=== PATIENT | female | born 1930 | race Caucasian/White ===

== ENCOUNTER 2021-04-23 13:09 | Outpatient (CLI) | payer MEDICARE | END 2021-04-23 13:10 | disposition home or self-care (01) | LOC: BICRAD 13:09 | PROVIDERS: ATTEND Nurse Practitioner Family | DX: M47.812 Spondylosis without myelopathy or radiculopathy, cervical region (principal) | CPT/HCPCS: 72050 ==

== ENCOUNTER 2021-08-24 09:33 | Outpatient (CLI) | payer MEDICARE | END 2021-08-24 09:34 | disposition home or self-care (01) | LOC: RAD 09:33 | PROVIDERS: ATTEND Internal Medicine Critical Care Medicine | DX: R06.00 Dyspnea, unspecified (principal) | CPT/HCPCS: 71046 ==

== ENCOUNTER 2021-09-06 16:41 | Inpatient (IN) | payer MEDICARE ==
[2021-09-06] MEDS ORDERED: Morphine 4 MG/ML VIAL ONE ×2 (16:59→19:43)
[2021-09-06 17:57] LABS: Hemoglobin 9.3 g/dL (12.0-16.0); Mean Corpuscular HGB CONC 32.6 g/dL (32.0-36.0); Mean Corpuscular Hemoglobin 31.8 pg (27.0-31.0); Mean Corpuscular Volume 97.6 fL (78.0-98.0); Mean Platelet Volume 7.5 fL (7.4-10.4); Platelet Count 170 thou/uL (130-400); RBC Distribution Width 12.5 % (11.5-14.5); Red Blood Cell (RBC) Count 2.93 mill/uL (4.20-5.40); White Blood Cell (WBC) Count 11.3 thou/uL (4.8-10.8)
[2021-09-06 18:12] LABS: Band 4 % (5-11); Lymphocytes 12 % (21-51); MDiff Complete? YES; Monocytes 14 % (0-10); Neutrophil 68 % (42-75); Platelet Morphology Comment Appears Adequate; Polychromasia SLIGHT = 2-3 cells (100X) (0-2/hpf); Reactive Lymphocytes 2 % (0-10)
[2021-09-06 18:22] LABS: ALT (SGPT) 9 U/L (8-55); AST (SGOT) 16 U/L (5-34); Albumin 3.3 g/dL (3.4-4.8); Alkaline Phosphatase 68 U/L (40-110); Anion Gap 16 mmol/L (10-20); BUN (Urea Nitrogen) 26 mg/dL (9.8-20.1); Bilirubin, Total 0.3 mg/dL (0.2-1.2); Calc. Creatinine Clearance 0 mL/min (70-130); Calcium 8.4 mg/dL (7.8-10.44); Carbon Dioxide 26 mmol/L (23-31); Chloride 93 mmol/L (98-107); Globulin 2.2 g/dL (2.4-3.5); Glucose 83 mg/dL (83-110); Potassium 4.5 mmol/L (3.5-5.1); Protein, Total 5.5 g/dL (5.8-8.1); Sodium 130 mmol/L (136-145)
[2021-09-06] MEDS ORDERED: Dextrose 50% Abboject 50 ML SYRINGE SLOW IVP PRN (19:04)
[2021-09-06] MEDS ORDERED: Morphine 4 MG/ML VIAL SLOW IVP PRN ×2 (19:04→19:15)
[2021-09-06] MEDS ORDERED: Dextrose 5% in Water 1,000 ML IV PRN (19:04)
[2021-09-06] MEDS ORDERED: Ondansetron PF 4 MG/2 ML Vial IVP PRN (19:04)
[2021-09-06] MEDS ORDERED: hydrALAZINE 20 MG/ML VIAL SLOW IVP PRN (19:04)
[2021-09-06] MEDS ORDERED: traMADol HCl 50 MG TAB PO PRN (19:04)
[2021-09-06] MEDS ORDERED: Acetaminophen 500 MG TAB PO SCH (19:15)
[2021-09-06 19:17] LABS: Magnesium 1.8 mg/dL (1.6-2.6); Phosphorus 3.8 mg/dL (2.3-4.7)
[2021-09-06] MEDS ORDERED: Ibuprofen 200 MG TAB PO PRN (20:47)
[2021-09-06 21:46] VITALS: BMI 32.0
[2021-09-06] MEDS ORDERED: Sodium Chloride 0.9% 1,000 ML IV SCH (22:00)
[2021-09-06] MEDS ORDERED: Hydrocortisone Sod Succ/PF 100 mg/2 ml Vial IVP SCH (22:00)
[2021-09-06] MEDS: Sodium Chloride 0.9% 1,000 ML IV SCH (22:05)
[2021-09-06] MEDS: Gabapentin 100 MG CAP PO SCH (22:05)
[2021-09-06] MEDS: Ascorbic Acid 500 mg Chewable Tablet PO SCH (22:05)
[2021-09-06] MEDS: Senokot S 8.6-50 MG TAB PO SCH (22:05)
[2021-09-06] MEDS: traMADol HCl 50 MG TAB PO SCH (22:06)
[2021-09-06] MEDS: Famotidine 20 MG TAB PO SCH (22:09)
[2021-09-07] MEDS: Hydrocortisone Sod Succ/PF 100 mg/2 ml Vial IVP SCH ×5 (00:19→23:18)
[2021-09-07] MEDS: traMADol HCl 50 MG TAB PO SCH ×4 (03:28→23:15)
[2021-09-07] MEDS: Sodium Chloride 0.9% 1,000 ML IV SCH (05:56)
[2021-09-07] MEDS: Acetaminophen 500 MG TAB PO SCH ×4 (06:04→23:16)
[2021-09-07 07:02] LABS: #Lymphocytes 0.8 thou/uL (1.20-3.40); #Neutrophils 12.5 thou/uL (1.40-6.50); %Basophils 0.3 % (0.0-1.0); %Eosinophils 0.1 % (0.0-10.0); %Lymphocytes 5.5 % (21.0-51.0); %Monocytes 6.7 % (0.0-10.0); %Neutrophils 87.4 % (42.0-75.0); Hemoglobin 9.1 g/dL (12.0-16.0); Mean Corpuscular HGB CONC 32.5 g/dL (32.0-36.0); Mean Corpuscular Hemoglobin 32.5 pg (27.0-31.0); Platelet Count 169 thou/uL (130-400); RBC Distribution Width 12.4 % (11.5-14.5); White Blood Cell (WBC) Count 14.3 thou/uL (4.8-10.8)
[2021-09-07] MEDS ORDERED: ceFAZolin 2 GM/Dextrose 50 ML 2 GM in Premix Bag 1 BAG IVPB SCH ×2 (07:30→18:00)
[2021-09-07] MEDS: Allopurinol 100 MG TAB PO SCH (09:00)
[2021-09-07] MEDS: Escitalopram Oxalate 10 mg Tablet PO SCH (09:00)
[2021-09-07] MEDS: Ascorbic Acid 500 mg Chewable Tablet PO SCH ×2 (10:32→23:16)
[2021-09-07] MEDS: Ferrous Sulfate 325 MG TAB PO SCH ×2 (10:32→23:16)
[2021-09-07] MEDS: Gabapentin 100 MG CAP PO SCH ×3 (10:32→23:18)
[2021-09-07] MEDS: Senokot S 8.6-50 MG TAB PO SCH ×2 (10:33→23:14)
[2021-09-07 11:25] LABS: SARS-CoV-2 PCR by NAA Not Detected (NotDetected)
[2021-09-07] MEDS ORDERED: Fentanyl 100 MCG/2 ML VIAL ONE ×2 (11:40→14:18)
[2021-09-07] MEDS ORDERED: Dexmedetomidine 200 MCG/2 ML VIAL ONE (11:40)
[2021-09-07] MEDS ORDERED: ceFAZolin 2 GM/Dextrose 50 ML IVPB ONE (11:57)
[2021-09-07] MEDS ORDERED: PROPOFOL 200 MG/20 ML VIAL ONE (12:10)
[2021-09-07] MEDS ORDERED: PHENYLEPHRINE-NS 100 MCG/ML 10 ML SYRINGE ONE (12:10)
[2021-09-07] MEDS ORDERED: ePHEDrine 50 MG/ML VIAL ONE (12:10)
[2021-09-07] MEDS ORDERED: Dexamethasone 20 MG/5 ML VIAL ONE (12:10)
[2021-09-07] MEDS ORDERED: Ondansetron PF 4 MG/2 ML Vial ONE ×2 (12:10→14:17)
[2021-09-07] MEDS: Polyethylene Glycol 3350 17 GM Packet PO SCH (13:48)
[2021-09-07] MEDS ORDERED: Promethazine HCl 25 MG/ML VIAL IVPB PRN (14:13)
[2021-09-07] MEDS ORDERED: Promethazine HCl 25 MG/ML VIAL IM PRN (14:13)
[2021-09-07] MEDS ORDERED: Ondansetron HCl/PF 4 MG/2 ML Vial IVP PRN (14:13)
[2021-09-07 14:54] LABS: Chloride 98 mmol/L (98-107); Potassium 5.3 mmol/L (3.5-5.1); Sodium 127 mmol/L (136-145)
[2021-09-07 14:55] LABS: Calcium 8.1 mg/dL (7.8-10.44); Glucose 113 mg/dL (83-110)
[2021-09-07 14:57] LABS: Anion Gap 15 mmol/L (10-20); Carbon Dioxide 19 mmol/L (23-31)
[2021-09-07 14:59] LABS: BUN (Urea Nitrogen) 28 mg/dL (9.8-20.1); Calc. Creatinine Clearance 42 mL/min (70-130)
[2021-09-07 15:01] LABS: Magnesium 1.8 mg/dL (1.6-2.6)
[2021-09-07 15:05] LABS: Phosphorus 4.6 mg/dL (2.3-4.7)
[2021-09-07 15:40] LABS: Anion Gap 16 mmol/L (10-20); BUN (Urea Nitrogen) 29 mg/dL (9.8-20.1); Calc. Creatinine Clearance 38 mL/min (70-130); Calcium 8.4 mg/dL (7.8-10.44); Carbon Dioxide 20 mmol/L (23-31); Chloride 98 mmol/L (98-107); Glucose 122 mg/dL (83-110); Sodium 129 mmol/L (136-145)
[2021-09-07] MEDS ORDERED: Sodium Chloride 0.9% 1,000 ML IV SCH (16:15)
[2021-09-07] MEDS ORDERED: Morphine 4 MG/ML VIAL SLOW IVP PRN (20:40)
[2021-09-07] MEDS ORDERED: Simvastatin 40 MG TAB PO SCH (21:00)
[2021-09-07] MEDS: ceFAZolin 2 GM/Dextrose 50 ML 2 GM in Premix Bag 1 BAG IVPB SCH (23:14)
[2021-09-07] MEDS: Cyclobenzaprine 10 MG TAB PO PRN (23:16)
[2021-09-07] MEDS: Famotidine 20 MG TAB PO SCH (23:17)
[2021-09-07] MEDS ORDERED: Atorvastatin Calcium 20 MG TAB PO SCH (23:59)
[2021-09-08] MEDS: traMADol HCl 50 MG TAB PO SCH (03:59)
[2021-09-08] MEDS: ceFAZolin 2 GM/Dextrose 50 ML 2 GM in Premix Bag 1 BAG IVPB SCH (04:00)
[2021-09-08] MEDS: Acetaminophen 500 MG TAB PO SCH (05:28)
[2021-09-08] MEDS: Hydrocortisone Sod Succ/PF 100 mg/2 ml Vial IVP SCH ×5 (05:28→23:29)
[2021-09-08 05:59] LABS: Band 31 % (5-11); Hemoglobin 7.5 g/dL (12.0-16.0); Lymphocytes 4 % (21-51); MDiff Complete? YES; Mean Corpuscular HGB CONC 32.7 g/dL (32.0-36.0); Mean Corpuscular Hemoglobin 31.8 pg (27.0-31.0); Mean Corpuscular Volume 97.3 fL (78.0-98.0); Mean Platelet Volume 8.8 fL (7.4-10.4); Monocytes 6 % (0-10); Myelocyte 1 % (0-0); Neutrophil 58 % (42-75); Platelet Count 112 thou/uL (130-400); Platelet Morphology Comment Appears Decreased; RBC Distribution Width 12.5 % (11.5-14.5); Red Blood Cell (RBC) Count 2.35 mill/uL (4.20-5.40); White Blood Cell (WBC) Count 17.4 thou/uL (4.8-10.8)
[2021-09-08] MEDS ORDERED: Acetaminophen 500 MG TAB PO SCH (07:51)
[2021-09-08] MEDS: Polyethylene Glycol 3350 17 GM Packet PO SCH (08:55)
[2021-09-08] MEDS: Ferrous Sulfate 325 MG TAB PO SCH ×2 (08:56→17:05)
[2021-09-08] MEDS: Allopurinol 100 MG TAB PO SCH (08:56)
[2021-09-08] MEDS: Senokot S 8.6-50 MG TAB PO SCH ×2 (08:56→21:21)
[2021-09-08] MEDS: Escitalopram Oxalate 10 mg Tablet PO SCH (08:56)
[2021-09-08] MEDS: Ascorbic Acid 500 mg Chewable Tablet PO SCH ×2 (08:56→21:21)
[2021-09-08] MEDS: Acetaminophen 325 MG TAB PO SCH ×3 (08:57→21:29)
[2021-09-08] MEDS: Gabapentin 100 MG CAP PO SCH ×3 (08:57→21:22)
[2021-09-08] MEDS ORDERED: Furosemide 20 MG TAB PO SCH (09:00)
[2021-09-08] MEDS: Acetaminophen/Codeine 30-300mg Tablet PO SCH ×3 (09:09→21:28)
[2021-09-08 09:10] LABS: Anion Gap 13 mmol/L (10-20); BUN (Urea Nitrogen) 33 mg/dL (9.8-20.1); Calc. Creatinine Clearance 36 mL/min (70-130); Carbon Dioxide 23 mmol/L (23-31); Chloride 96 mmol/L (98-107); Glucose 135 mg/dL (83-110); Phosphorus 4.2 mg/dL (2.3-4.7); Potassium 4.7 mmol/L (3.5-5.1); Sodium 127 mmol/L (136-145)
[2021-09-08 09:19] LABS: Calcium 8.4 mg/dL (7.8-10.44); Magnesium 2.1 mg/dL (1.6-2.6)
[2021-09-08] MEDS ORDERED: Furosemide 40 MG/4 ML VIAL SLOW IVP SCH (10:45)
[2021-09-08] MEDS ORDERED: guaiFENesin ER 600 MG TAB PO SCH (15:00)
[2021-09-08 17:31] LABS: Hemoglobin 6.5 g/dL (12.0-16.0); Mean Corpuscular HGB CONC 33.3 g/dL (32.0-36.0); Mean Corpuscular Hemoglobin 32.8 pg (27.0-31.0); Mean Corpuscular Volume 98.4 fL (78.0-98.0); Mean Platelet Volume 7.6 fL (7.4-10.4); Platelet Count 186 thou/uL (130-400); RBC Distribution Width 12.4 % (11.5-14.5); Red Blood Cell (RBC) Count 1.99 mill/uL (4.20-5.40); White Blood Cell (WBC) Count 17.6 thou/uL (4.8-10.8)
[2021-09-08 17:43] LABS: Band 23 % (5-11); Lymphocytes 3 % (21-51); MDiff Complete? YES; Monocytes 6 % (0-10); Myelocyte 2 % (0-0); Neutrophil 66 % (42-75); Platelet Morphology Comment Appears Adequate; RBC Morphology Normal
[2021-09-08] MEDS ORDERED: Latanoprost 0.005% Ophth Soln 2.5 ml Bottle EA EYE SCH (21:00)
[2021-09-08] MEDS: Cyclobenzaprine 10 MG TAB PO PRN (21:20)
[2021-09-08] MEDS: guaiFENesin ER 600 MG TAB PO SCH (21:21)
[2021-09-08] MEDS: Atorvastatin Calcium 20 MG TAB PO SCH (21:21)
[2021-09-08] MEDS: LATANOPROST 0.005% EA EYE SCH (21:22)
[2021-09-08] MEDS: Famotidine 20 MG TAB PO SCH (21:30)
[2021-09-09] MEDS: Acetaminophen 325 MG TAB PO SCH ×4 (03:00→20:52)
[2021-09-09] MEDS: Acetaminophen/Codeine 30-300mg Tablet PO SCH ×5 (03:00→20:52)
[2021-09-09] MEDS: Hydrocortisone Sod Succ/PF 100 mg/2 ml Vial IVP SCH ×2 (04:24→11:24)
[2021-09-09 06:50] LABS: Hemoglobin 7.5 g/dL (12.0-16.0); Mean Corpuscular HGB CONC 33.1 g/dL (32.0-36.0); Mean Corpuscular Volume 93.5 fL (78.0-98.0); Platelet Count 203 thou/uL (130-400); RBC Distribution Width 15.7 % (11.5-14.5); Red Blood Cell (RBC) Count 2.42 mill/uL (4.20-5.40); White Blood Cell (WBC) Count 16.7 thou/uL (4.8-10.8)
[2021-09-09 07:05] LABS: Anion Gap 13 mmol/L (10-20); BUN (Urea Nitrogen) 35 mg/dL (9.8-20.1); Calc. Creatinine Clearance 37 mL/min (70-130); Calcium 8.5 mg/dL (7.8-10.44); Carbon Dioxide 22 mmol/L (23-31); Chloride 99 mmol/L (98-107); Glucose 131 mg/dL (83-110); Magnesium 1.8 mg/dL (1.6-2.6); Phosphorus 3.7 mg/dL (2.3-4.7); Potassium 4.5 mmol/L (3.5-5.1); Sodium 129 mmol/L (136-145)
[2021-09-09 08:29] LABS: Band 31 % (5-11); Eosinophils 3 % (0-10); Lymphocytes 6 % (21-51); MDiff Complete? YES; Monocytes 3 % (0-10); Myelocyte 1 % (0-0); Neutrophil 56 % (42-75); Polychromasia SLIGHT = 2-3 cells (100X) (0-2/hpf)
[2021-09-09] MEDS ORDERED: Magnesium 2 GM/50 ML 2 GM in Premix Bag 1 BAG IVPB SCH (09:00)
[2021-09-09] MEDS: Furosemide 40 MG TAB PO SCH (09:38)
[2021-09-09] MEDS: Ascorbic Acid 500 mg Chewable Tablet PO SCH ×2 (09:38→20:52)
[2021-09-09] MEDS: Ferrous Sulfate 325 MG TAB PO SCH ×2 (09:38→15:13)
[2021-09-09] MEDS: Senokot S 8.6-50 MG TAB PO SCH ×2 (09:38→20:51)
[2021-09-09] MEDS: Gabapentin 100 MG CAP PO SCH ×3 (09:40→20:52)
[2021-09-09] MEDS: Allopurinol 100 MG TAB PO SCH (09:40)
[2021-09-09] MEDS: Escitalopram Oxalate 10 mg Tablet PO SCH (09:40)
[2021-09-09] MEDS: Polyethylene Glycol 3350 17 GM Packet PO SCH (09:41)
[2021-09-09] MEDS: guaiFENesin ER 600 MG TAB PO SCH ×2 (09:41→20:51)
[2021-09-09] MEDS ORDERED: methylPREDNISolone Sod Succ/PF 125 MG/2 ML VIAL IVP SCH (14:30)
[2021-09-09 14:59] LABS: Mean Corpuscular HGB CONC 32.6 g/dL (32.0-36.0); Mean Corpuscular Hemoglobin 30.2 pg (27.0-31.0); Mean Corpuscular Volume 92.4 fL (78.0-98.0); Mean Platelet Volume 8.5 fL (7.4-10.4); Platelet Count 205 thou/uL (130-400); RBC Distribution Width 16.1 % (11.5-14.5); Red Blood Cell (RBC) Count 2.66 mill/uL (4.20-5.40); White Blood Cell (WBC) Count 22.5 thou/uL (4.8-10.8)
[2021-09-09 15:25] LABS: Anisocytosis SLIGHT = 6-15 cells (100X) (0-5/hpf); Band 17 % (5-11); Lymphocytes 4 % (21-51); MDiff Complete? YES; Metamyelocyte 1 % (0-0); Monocytes 10 % (0-10); Myelocyte 1 % (0-0); Neutrophil 66 % (42-75); Platelet Morphology Comment Appears Adequate; Polychromasia SLIGHT = 2-3 cells (100X) (0-2/hpf); Reactive Lymphocytes 1 % (0-10)
[2021-09-09] MEDS ORDERED: Furosemide 20 MG/2 ML VIAL SLOW IVP SCH (17:15)
[2021-09-09] MEDS: methylPREDNISolone Sod Succ/PF 125 MG/2 ML VIAL IVP SCH (20:51)
[2021-09-09] MEDS: Atorvastatin Calcium 20 MG TAB PO SCH (20:51)
[2021-09-09] MEDS: Famotidine 20 MG TAB PO SCH (20:52)
[2021-09-09] MEDS: LATANOPROST 0.005% EA EYE SCH (20:53)
[2021-09-10] MEDS: Acetaminophen 325 MG TAB PO SCH ×4 (03:04→21:12)
[2021-09-10] MEDS: Acetaminophen/Codeine 30-300mg Tablet PO SCH ×4 (03:04→21:12)
[2021-09-10] MEDS: methylPREDNISolone Sod Succ/PF 125 MG/2 ML VIAL IVP SCH ×3 (05:39→21:12)
[2021-09-10 07:17] LABS: Hemoglobin 7.8 g/dL (12.0-16.0); Mean Corpuscular HGB CONC 32.9 g/dL (32.0-36.0); Mean Corpuscular Hemoglobin 30.4 pg (27.0-31.0); Mean Corpuscular Volume 92.4 fL (78.0-98.0); Mean Platelet Volume 7.8 fL (7.4-10.4); Platelet Count 252 thou/uL (130-400); RBC Distribution Width 15.6 % (11.5-14.5); Red Blood Cell (RBC) Count 2.55 mill/uL (4.20-5.40); White Blood Cell (WBC) Count 20.4 thou/uL (4.8-10.8)
[2021-09-10 07:19] LABS: Anion Gap 14 mmol/L (10-20); BUN (Urea Nitrogen) 37 mg/dL (9.8-20.1); Calc. Creatinine Clearance 41 mL/min (70-130); Carbon Dioxide 22 mmol/L (23-31); Chloride 99 mmol/L (98-107); Glucose 142 mg/dL (83-110); Magnesium 2.1 mg/dL (1.6-2.6); Phosphorus 4.3 mg/dL (2.3-4.7); Potassium 4.6 mmol/L (3.5-5.1); Sodium 130 mmol/L (136-145)
[2021-09-10] MEDS ORDERED: Azithromycin 250 MG TAB PO SCH (08:30)
[2021-09-10 09:06] LABS: Band 37 % (5-11); Lymphocytes 8 % (21-51); MDiff Complete? YES; Metamyelocyte 2 % (0-0); Monocytes 5 % (0-10); Myelocyte 1 % (0-0); Neutrophil 47 % (42-75); Platelet Morphology Comment Appears Adequate; Polychromasia SLIGHT = 2-3 cells (100X) (0-2/hpf)
[2021-09-10] MEDS: Polyethylene Glycol 3350 17 GM Packet PO SCH (09:13)
[2021-09-10] MEDS: guaiFENesin ER 600 MG TAB PO SCH ×2 (09:13→21:12)
[2021-09-10] MEDS: Senokot S 8.6-50 MG TAB PO SCH ×2 (09:13→21:12)
[2021-09-10] MEDS: Furosemide 40 MG TAB PO SCH (09:13)
[2021-09-10] MEDS: Escitalopram Oxalate 10 mg Tablet PO SCH (09:14)
[2021-09-10] MEDS: Ferrous Sulfate 325 MG TAB PO SCH ×2 (09:14→14:48)
[2021-09-10] MEDS: Ascorbic Acid 500 mg Chewable Tablet PO SCH ×2 (09:15→21:13)
[2021-09-10] MEDS: Allopurinol 100 MG TAB PO SCH (09:15)
[2021-09-10] MEDS: Gabapentin 100 MG CAP PO SCH ×3 (09:17→21:13)
[2021-09-10] MEDS: Heparin 5,000 UNITS/ML VIAL SC SCH ×3 (09:21→21:13)
[2021-09-10] MEDS: Atorvastatin Calcium 20 MG TAB PO SCH (21:13)
[2021-09-10] MEDS: LATANOPROST 0.005% EA EYE SCH (21:13)
[2021-09-11] MEDS: Acetaminophen/Codeine 30-300mg Tablet PO SCH ×2 (03:47→10:25)
[2021-09-11] MEDS: Acetaminophen 325 MG TAB PO SCH ×3 (03:47→14:52)
[2021-09-11] MEDS: methylPREDNISolone Sod Succ/PF 125 MG/2 ML VIAL IVP SCH (06:09)
[2021-09-11 08:13] LABS: Hemoglobin 8.2 g/dL (12.0-16.0)
[2021-09-11 08:26] LABS: Anion Gap 15 mmol/L (10-20); BUN (Urea Nitrogen) 42 mg/dL (9.8-20.1); Calc. Creatinine Clearance 38 mL/min (70-130); Calcium 9.4 mg/dL (7.8-10.44); Carbon Dioxide 25 mmol/L (23-31); Chloride 96 mmol/L (98-107); Glucose 133 mg/dL (83-110); Magnesium 2.1 mg/dL (1.6-2.6); Phosphorus 4.7 mg/dL (2.3-4.7); Potassium 4.5 mmol/L (3.5-5.1); Sodium 131 mmol/L (136-145)
[2021-09-11] MEDS ORDERED: Azithromycin 250 MG TAB PO SCH (09:00)
[2021-09-11] MEDS: Heparin 5,000 UNITS/ML VIAL SC SCH ×2 (10:22→14:51)
[2021-09-11] MEDS: Senokot S 8.6-50 MG TAB PO SCH (10:23)
[2021-09-11] MEDS: Polyethylene Glycol 3350 17 GM Packet PO SCH (10:23)
[2021-09-11] MEDS: Allopurinol 100 MG TAB PO SCH (10:26)
[2021-09-11] MEDS: Gabapentin 100 MG CAP PO SCH ×2 (10:26→14:52)
[2021-09-11] MEDS: guaiFENesin ER 600 MG TAB PO SCH (10:26)
[2021-09-11] MEDS: Ferrous Sulfate 325 MG TAB PO SCH (10:27)
[2021-09-11] MEDS: Escitalopram Oxalate 10 mg Tablet PO SCH (10:28)
[2021-09-11] MEDS: Furosemide 40 MG TAB PO SCH (10:28)
[2021-09-11] MEDS: Ascorbic Acid 500 mg Chewable Tablet PO SCH (10:29)
[2021-09-11 12:43] VITALS: BP 140/70; TEMP 98.3
[2021-09-11] MEDS ORDERED: methylPREDNISolone Sod Succ/PF 125 MG/2 ML VIAL IVP SCH (14:30)
[2021-09-12] MEDS ORDERED: predniSONE 20 MG TAB PO SCH (08:00)
== END 2021-09-11 15:10 | DRG 480 ==
LOC: ERS 16:41 → SURG B 19:10
PROVIDERS: ADMIT Surgery; ATTEND Surgery
PROC: 0QSC06Z Reposition Left Lower Femur with Intramedullary Internal Fixation Device, Open Approach (ICD-10-PCS; principal; 2021-09-07)
PROC: 30233N1 Transfusion of Nonautologous Red Blood Cells into Peripheral Vein, Percutaneous Approach (ICD-10-PCS; 2021-09-08)
DX: S72.332A Displaced oblique fracture of shaft of left femur, initial encounter for closed fracture (principal); J69.0 Pneumonitis due to inhalation of food and vomit; E87.1 Hypo-osmolality and hyponatremia; J90 Pleural effusion, not elsewhere classified; M97.02XA Periprosthetic fracture around internal prosthetic left hip joint, initial encounter; D62 Acute posthemorrhagic anemia; J96.11 Chronic respiratory failure with hypoxia; J44.1 Chronic obstructive pulmonary disease with (acute) exacerbation; N17.9 Acute kidney failure, unspecified; J81.1 Chronic pulmonary edema; D64.9 Anemia, unspecified; E78.5 Hyperlipidemia, unspecified; W18.30XA Fall on same level, unspecified, initial encounter; Z20.822 Contact with and (suspected) exposure to COVID-19; H54.61 Unqualified visual loss, right eye, normal vision left eye; M10.9 Gout, unspecified; Z96.653 Presence of artificial knee joint, bilateral; N18.30 Chronic kidney disease, stage 3 unspecified; I12.9 Hypertensive chronic kidney disease with stage 1 through stage 4 chronic kidney disease, or unspecified chronic kidney disease; R91.1 Solitary pulmonary nodule; Z99.81 Dependence on supplemental oxygen; Z90.49 Acquired absence of other specified parts of digestive tract; Z90.710 Acquired absence of both cervix and uterus; Z87.891 Personal history of nicotine dependence; Z88.2 Allergy status to sulfonamides; Z79.82 Long term (current) use of aspirin; Z79.51 Long term (current) use of inhaled steroids; Z79.899 Other long term (current) drug therapy
CPT/HCPCS: 36415; 36416; 36430; 70450; 71045; 72125; 74230; 76000; 80048; 80053; 82533; 83735; 83880; 84100; 84145; 84484; 85014; 85018; 85025; 86850; 86900; 86901; 94640; 96374; 96376; C1713; G0390; J0690; J1100; J1644; J1720; J1940; J2270; J2405; J2704; J2930; J3010; J3475; J3490; J7050; J7620; P9016; U0003; U0005